=== PATIENT | female | born 1955 | race Caucasian/White ===

== ENCOUNTER 2019-10-30 12:09 | Inpatient (IN) | payer BC ==
[2019-10-25 13:16] LABS: BASOPHILS # (AUTO) 0.1 X10'3 (0-0.2); BASOPHILS % (AUTO) 0.9 % (0-1); EOSINOPHILS # (AUTO) 0.1 X10'3 (0-0.9); LYMPHOCYTES # (AUTO) 1.1 X10'3 (1.1-4.8); LYMPHOCYTES % (AUTO) 18.7 % (21-51); MEAN CORPUSCULAR HEMOGLOBIN 31.4 PG (27.0-31.0); MEAN CORPUSCULAR HGB CONC 33.3 g/dL (33.0-36.5); MEAN CORPUSCULAR VOLUME 94.4 FL (78-98); MEAN PLATELET VOLUME 9.4 FL (7.4-10.4); MONOCYTES # (AUTO) 0.5 X10'3 (0-0.9); MONOCYTES % (AUTO) 8.4 % (2-12); PRE OP HEMATOCRIT 41.7 % (35.0-45.0); PRE OP HEMOGLOBIN 13.9 g/dL (12.0-16.0); PRE OP PLATELET COUNT 250 X10'3 (140-440); RED BLOOD COUNT 4.42 X10'6 (4.20-5.60); RED CELL DISTRIBUTION WIDTH 12.6 % (11.5-14.5)
[2019-10-25 13:31] LABS: PRE OP INR < 0.9 INR; PRE OP PARTIAL THROMB. TIME 25 SECONDS (22-32); PRE OP PROTIME 9.6 SECONDS (9.0-12.0)
[2019-10-25 13:33] LABS: ALBUMIN 4.2 G/DL (3.4-5.0); ALBUMIN/GLOBULIN RATIO 1.3 (1.1-1.5); ALKALINE PHOSPHATASE 99 IU/L (46-116); BLOOD UREA NITROGEN 12 MG/DL (7-18); BUN/CREATININE RATIO 14.6 (6.6-38.0); CHLORIDE 103 MMOL/L (99-107); CREATININE 0.82 MG/DL (0.40-0.90); PRE OP ALT 37 U/L (30-65); PRE OP ANION GAP 7 (8-16); PRE OP AST 30 U/L (10-37); PRE OP BILIRUB, TOTAL 0.5 MG/DL (0.0-1.0); PRE OP GLUCOSE 100 MG/DL (70-104); PRE OP POTASSIUM 4.5 MMOL/L (3.4-5.1); PRE OP SODIUM 138 MMOL/L (135-145); TOTAL CARBON DIOXIDE 28.2 MMOL/L (24-32); TOTAL PROTEIN 7.5 G/DL (6.4-8.2); eGFR 70 ML/MIN
[~2019-10-30] VITALS: Ht 167.6 cm; Wt 69.4 kg
[2019-10-30] VITALS (14 sets, daily range): BP systolic 103–167; BP diastolic 61–119
[~2019-10-30 12:09] MED LIST: ATOR20TA66 PO; MELA3TAB39 PO; NAPR250T4 PO; TRANEXAMIC ACID 1 GM IN NACL,ISO-OS 100 ML IV ONE; ceFAZolin 2gm in dextrose, iso 50 ML IV ONE; famotidine 20mg tablet PO ONE; ringers solution, lacted 1,000 ML IV SCH; vancomycin 1,500 MG in NS 500ml IV soln IV ONE
[2019-10-30] MEDS ORDERED: ACET-1025 PO (12:56)
[2019-10-30] MEDS ORDERED: ceFAZolin 1000mg inj ONE (14:42)
[2019-10-30] MEDS ORDERED: tetracaine 1% (10mg/ml) pres. free inj. ONE (14:55)
[2019-10-30] MEDS ORDERED: midazolam 2 mg/2 ml injection ONE (15:00)
[2019-10-30] MEDS ORDERED: morphine /PF 1mg/ml 10ml inj. ONE (15:02)
[2019-10-30] MEDS ORDERED: propofol inj 20 ML IV ONE ×4 (15:23→17:23)
[2019-10-30] MEDS ORDERED: MIDAZolam 5mg/5ml vial ONE (15:37)
[2019-10-30] MEDS ORDERED: ringers solution, lacted 1,000 ML IV ONE (15:50)
[2019-10-30] MEDS ORDERED: proCHLORperazine 10 MG/2 ml inj IV PRN (15:50)
[2019-10-30] MEDS ORDERED: morphine 2 MG/ML inj. syringe IV PRN (15:50)
[2019-10-30] MEDS ORDERED: hydrALAZINE 20mg/ml inj. IV PRN (15:50)
[2019-10-30] MEDS ORDERED: meperidine/PF 25mg/ml syringe IV PRN ×3 (15:50)
[2019-10-30] MEDS ORDERED: ondansetron/PF 4mg/2ml inj IV PRN ×3 (15:50→18:15)
[2019-10-30] MEDS ORDERED: labetalol 20mg/4ml (5mg/ml) syringe IV PRN (15:50)
[2019-10-30] MEDS ORDERED: morphine 4 MG/ML inj SYRINge IV PRN (15:50)
[2019-10-30] MEDS ORDERED: naloxone 2mg/2ml inj 2 MG in normal saline 500ml IV soln 500 ML IV PRN (15:52)
[2019-10-30] MEDS ORDERED: ROPIVAcaine 0.2%/PF PUMP/bolus 550 ML ADDCANAL SCH (15:52)
[2019-10-30] MEDS ORDERED: diphenhydrAMINE 50 mg/ml inj IV PRN (15:55)
[2019-10-30] MEDS ORDERED: ROPIVAcaine 0.2% (10 MG/5 ML) BOLUS INJECTION ADDCANAL PRN (15:55)
[2019-10-30] MEDS ORDERED: ROPIVAcaine 0.5% (5mg/ml) 30ml vial ONE (17:23)
[2019-10-30] MEDS ORDERED: HYDROmorphone 1 mg/ml syringe IV PRN (18:15)
[2019-10-30] MEDS ORDERED: acetaminophen 325mg tablet PO PRN (18:15)
[2019-10-30] MEDS ORDERED: diphenhydrAMINE 25mg capsule PO PRN (18:15)
[2019-10-30] MEDS ORDERED: magnesium hydroxide 30ml (MOM) UD suspension PO PRN (18:15)
[2019-10-30] MEDS ORDERED: bisacodyl 10mg suppository rectal RC PRN (18:15)
[2019-10-30] MEDS ORDERED: HYDROcodone/acetaminophen 10/325mg tab PO PRN (18:15)
--- NOTE | 2019-10-30 18:25 | NUR ---
Received from OR via BED , accompanied by Anesthesiologist DR ARORA and report given by Anesthesiolgist. PATIENT WAKING UP, DENIES PAIN, V/S WNL, NEUROVASCULAR CHECKS INTACT, 18G PIV RUE , KAEL DRESSING TO RIGHT KNEE CDI W/ COLD POWDER PACK AND ON QUE PUMP AT 4ML/HR , SENSATION T-10.
--- NOTE | 2019-10-30 19:00 | NUR ---
PATIENT A&OX4, DENIES PAIN, V/S WNL, NEUROVASCULAR CHECKS INTACT, 18G PIV RUE , KAEL DRESSING TO RIGHT KNEE CDI W/ COLD POWDER PACK AND ON QUE PUMP AT 4ML/HR , SENSATION T12. . PATIENT TAKEN TO WITH ALL BELONGINGS AND HOOKED UP TO MONITORS IN ROOM AND REPORT GIVEN TO WELL DRILL OPERATOR ROTARY DRILL WHO HAS TAKEN OVER PATIENT CARE.
--- NOTE | 2019-10-30 19:11 | NUR ---
pt back from sx. vss. no pain.
[2019-10-30] MEDS ORDERED: vancomycin/NS 1 GM ADD-VANTAGE 250 ML IV SCH (20:00)
[2019-10-30] MEDS: diphenhydrAMINE 25mg capsule PO PRN (20:17)
[2019-10-30] MEDS ORDERED: temazepam 15mg capsule PO PRN (22:15)
[2019-10-30] MEDS: potassium Cl 20mEq in NS 1,000 ML IV SCH (22:18)
[2019-10-30] MEDS: sennosides 8.6mg tablet PO SCH (22:52)
[2019-10-30] MEDS: hydrOXYzine 25 MG tablet PO PRN (22:52)
[2019-10-31] MEDS: ceFAZolin 1GM/D5W- ADD-VANTAGE 50 ML IV SCH ×2 (00:20→07:53)
[2019-10-31 02:00] VITALS: BP 154/78
[2019-10-31] MEDS: diphenhydrAMINE 25mg capsule PO PRN ×2 (03:28→11:28)
[2019-10-31] MEDS: HYDROcodone/acetaminophen 10/325mg tab PO PRN ×3 (05:32→19:51)
[2019-10-31 06:00] VITALS: BP 146/77
--- NOTE | 2019-10-31 06:30 | NUR ---
Problems reprioritized. Patient report given, questions answered & plan of care reviewed with DORA MAHAJAN.
--- NOTE | 2019-10-31 06:43 | NUR ---
Patient in room ORTHO 4013A. I have received report from DORA FIGUEROA and had the opportunity to ask questions and assume patient care.
[2019-10-31 07:43] LABS: BASOPHILS % (AUTO) 0.5 % (0-1); EOSINOPHILS % (AUTO) 0.3 % (0-6); HEMATOCRIT 31.1 % (35.0-45.0); HEMOGLOBIN 10.4 g/dl (12.0-16.0); LYMPHOCYTES # (AUTO) 0.8 X10'3 (1.1-4.8); LYMPHOCYTES % (AUTO) 8.9 % (21-51); MEAN CORPUSCULAR HEMOGLOBIN 32.1 PG (27.0-31.0); MEAN CORPUSCULAR HGB CONC 33.5 g/dL (33.0-36.5); MEAN CORPUSCULAR VOLUME 95.6 FL (78-98); MEAN PLATELET VOLUME 9.5 FL (7.4-10.4); MONOCYTES # (AUTO) 0.6 X10'3 (0-0.9); MONOCYTES % (AUTO) 7.6 % (2-12); NEUTROPHILS # (AUTO) 6.9 X10'3 (1.8-7.7); NEUTROPHILS % (AUTO) 82.7 % (42-75); PLATELET COUNT 169 X10'3 (140-440); RED BLOOD COUNT 3.25 X10'6 (4.20-5.60); RED CELL DISTRIBUTION WIDTH 13.1 % (11.5-14.5); WHITE BLOOD COUNT 8.4 X10'3 (4.5-11.0)
[2019-10-31 07:53] LABS: ALANINE AMINOTRANSFERASE 24 U/L (12-78); ALBUMIN 3.1 G/DL (3.4-5.0); ALBUMIN/GLOBULIN RATIO 1.2 (1.1-1.5); ALKALINE PHOSPHATASE 74 IU/L (46-116); ANION GAP 7 (8-16); ASPARTATE AMINO TRANSFERASE 19 U/L (10-37); BILIRUBIN,TOTAL 0.7 MG/DL (0.1-1.0); BLOOD UREA NITROGEN 5 MG/DL (7-18); BUN/CREATININE RATIO 5.1 (6.6-38.0); CALCIUM 7.9 MG/DL (8.5-10.1); CHLORIDE 106 MMOL/L (99-107); CREATININE 0.98 MG/DL (0.40-0.90); GLUCOSE 111 MG/DL (70-104); POTASSIUM 4.1 MMOL/L (3.5-5.1); SODIUM 138 MMOL/L (135-145); TOTAL CARBON DIOXIDE 24.8 MMOL/L (24-32); TOTAL PROTEIN 5.7 G/DL (6.4-8.2); eGFR 57 ML/MIN
[2019-10-31] MEDS: aspirin 81mg tablet.DR PO SCH ×2 (07:53→17:41)
[2019-10-31] MEDS: hydrOXYzine 25 MG tablet PO PRN ×3 (08:05→22:10)
[2019-10-31 10:00] VITALS: BP 115/62
[2019-10-31] MEDS: potassium Cl 20mEq in NS 1,000 ML IV SCH ×2 (11:23→19:50)
--- NOTE | 2019-10-31 12:53 | NUR ---
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 Pt currently on a regular diet documented with 50% PO intake first meal. Will continue to follow and monitor need for nutrition intervention. Addendum: 10/31/19 at [address] Amended: Links added.
[2019-10-31 14:00] VITALS: BP 161/81
--- NOTE | 2019-10-31 18:29 | NUR ---
Problems reprioritized. Patient report given, questions answered & plan of care reviewed with rabia smyth.
[2019-10-31] MEDS: sennosides 8.6mg tablet PO SCH (21:00)
[2019-10-31 22:00] VITALS: BP 127/67
[2019-11-01] MEDS: diphenhydrAMINE 25mg capsule PO PRN (00:19)
[2019-11-01] MEDS: HYDROcodone/acetaminophen 10/325mg tab PO PRN (00:21)
[2019-11-01 06:00] VITALS: BP 148/68
--- NOTE | 2019-11-01 07:08 | NUR ---
Patient in room ORTHO 4013A. I have received report from DORA JAVIER and had the opportunity to ask questions and assume patient care.
[2019-11-01 07:21] LABS: ALANINE AMINOTRANSFERASE 17 U/L (12-78); ALBUMIN 2.7 G/DL (3.4-5.0); ALBUMIN/GLOBULIN RATIO 0.9 (1.1-1.5); ALKALINE PHOSPHATASE 67 IU/L (46-116); ANION GAP 8 (8-16); ASPARTATE AMINO TRANSFERASE 19 U/L (10-37); BILIRUBIN,TOTAL 0.6 MG/DL (0.1-1.0); BLOOD UREA NITROGEN 4 MG/DL (7-18); BUN/CREATININE RATIO 4.9 (6.6-38.0); CALCIUM 8.2 MG/DL (8.5-10.1); CHLORIDE 107 MMOL/L (99-107); CREATININE 0.81 MG/DL (0.40-0.90); GLUCOSE 99 MG/DL (70-104); SODIUM 139 MMOL/L (135-145); TOTAL CARBON DIOXIDE 24.5 MMOL/L (24-32); TOTAL PROTEIN 5.7 G/DL (6.4-8.2); eGFR 71 ML/MIN
[2019-11-01 07:25] LABS: BASOPHILS % (AUTO) 0.4 % (0-1); EOSINOPHILS % (AUTO) 0.3 % (0-6); HEMATOCRIT 28.8 % (35.0-45.0); HEMOGLOBIN 9.6 g/dl (12.0-16.0); LYMPHOCYTES # (AUTO) 0.8 X10'3 (1.1-4.8); LYMPHOCYTES % (AUTO) 9.8 % (21-51); MEAN CORPUSCULAR HEMOGLOBIN 31.6 PG (27.0-31.0); MEAN CORPUSCULAR HGB CONC 33.2 g/dL (33.0-36.5); MEAN CORPUSCULAR VOLUME 95.2 FL (78-98); MEAN PLATELET VOLUME 9.7 FL (7.4-10.4); MONOCYTES # (AUTO) 0.8 X10'3 (0-0.9); MONOCYTES % (AUTO) 10.4 % (2-12); NEUTROPHILS # (AUTO) 6.1 X10'3 (1.8-7.7); NEUTROPHILS % (AUTO) 79.1 % (42-75); PLATELET COUNT 158 X10'3 (140-440); RED BLOOD COUNT 3.03 X10'6 (4.20-5.60); RED CELL DISTRIBUTION WIDTH 13.2 % (11.5-14.5); WHITE BLOOD COUNT 7.7 X10'3 (4.5-11.0)
[2019-11-01] MEDS: aspirin 81mg tablet.DR PO SCH (08:01)
[2019-11-01] MEDS ORDERED: ONQPUMP ADDCANAL (08:10)
[2019-11-01] MEDS ORDERED: HYDR-4353 PO (08:10)
[2019-11-01] MEDS ORDERED: ASPI-1071 PO (08:10)
--- NOTE | 2019-11-01 08:10 | NUR ---
Patient in room ORTHO 4013. I have received report from Jo Ann JOHN and had the opportunity to ask questions and assume patient care.
[2019-11-01 10:00] VITALS: BP 122/68
[2019-11-01] MEDS: potassium Cl 20mEq in NS 1,000 ML IV SCH (10:13)
--- NOTE | 2019-11-01 13:45 | NUR ---
DC instructions given to pt, pt had opportunity to ask questions. IV was removed canula intact no complications. Pt was assisted with dressing, belongings were packed up. [facility] picked pt up in stable condition.
== END 2019-11-01 14:05 | disposition home or self-care (01) | DRG 470 ==
LOC: PAS 12:09 → ORTHO 4S 18:13
PROVIDERS: ADMIT Orthopaedic Surgery; ATTEND Orthopaedic Surgery
PROC: 0SRC0J9 Replacement of Right Knee Joint with Synthetic Substitute, Cemented, Open Approach (ICD-10-PCS; principal; 2019-10-30 14:54)
DX: M17.11 Unilateral primary osteoarthritis, right knee (principal); Z79.899 Other long term (current) drug therapy
CPT/HCPCS: Z7506; Z7508; 36415; 80053; 82948; 85025; 85610; 85730; 86885; 86900; 86901; 86920; 87081; 97116; 97161; 97530; A6455; A7000; C1713; C1758; C1776; G0378; J0690; J1200; J2250; J2270; J2704; J2795; J3370; J3480; J7040; J7120; Q0163; Q0177

== ENCOUNTER 2020-05-06 05:29 | Day surgery (SDC) | payer BC ==
[2020-05-01 12:38] LABS: BASOPHILS # (AUTO) 0.1 X10'3 (0-0.2); EOSINOPHILS # (AUTO) 0.1 X10'3 (0-0.9); EOSINOPHILS % (AUTO) 1.9 % (0-6); LYMPHOCYTES # (AUTO) 1.2 X10'3 (1.1-4.8); MEAN CORPUSCULAR HEMOGLOBIN 32.1 PG (27.0-31.0); MEAN CORPUSCULAR HGB CONC 33.6 g/dL (33.0-36.5); MEAN CORPUSCULAR VOLUME 95.7 FL (78-98); MONOCYTES # (AUTO) 0.5 X10'3 (0-0.9); MONOCYTES % (AUTO) 8.3 % (2-12); NEUTROPHILS % (AUTO) 68.8 % (42-75); PRE OP HEMATOCRIT 41.2 % (35.0-45.0); PRE OP HEMOGLOBIN 13.8 g/dL (12.0-16.0); PRE OP PLATELET COUNT 234 X10'3 (140-440); RED BLOOD COUNT 4.31 X10'6 (4.20-5.60); RED CELL DISTRIBUTION WIDTH 14.1 % (11.5-14.5)
[2020-05-01 12:52] LABS: PRE OP INR 0.9 INR; PRE OP PROTIME 9.8 SECONDS (9.0-12.0)
[2020-05-01 12:56] LABS: ALBUMIN 4.2 G/DL (3.4-5.0); ALBUMIN/GLOBULIN RATIO 1.1 (1.1-1.5); ALKALINE PHOSPHATASE 118 IU/L (46-116); BLOOD UREA NITROGEN 13 MG/DL (7-18); BUN/CREATININE RATIO 16.5 (6.6-38.0); CALCIUM 9.2 MG/DL (8.5-10.1); CHLORIDE 105 MMOL/L (99-107); CREATININE 0.79 MG/DL (0.40-0.90); PRE OP ALT 38 U/L (30-65); PRE OP ANION GAP 8 (8-16); PRE OP AST 25 U/L (10-37); PRE OP BILIRUB, TOTAL 0.4 MG/DL (0.0-1.0); PRE OP GLUCOSE 96 MG/DL (70-104); PRE OP POTASSIUM 4.6 MMOL/L (3.4-5.1); PRE OP SODIUM 140 MMOL/L (135-145); TOTAL CARBON DIOXIDE 26.7 MMOL/L (24-32); TOTAL PROTEIN 7.9 G/DL (6.4-8.2); eGFR 73 ML/MIN
[2020-05-06] VITALS (17 sets, daily range): BP systolic 102–166; BP diastolic 62–124
[~2020-05-06] VITALS: Ht 167.6 cm; Wt 68.0 kg
[~2020-05-06 05:29] MED LIST changes: +ACET-2319 PO; -ATOR20TA66 PO; -MELA3TAB39 PO; +NAPR220C15 PO; -NAPR250T4 PO; -TRANEXAMIC ACID 1 GM IN NACL,ISO-OS 100 ML IV ONE; -ceFAZolin 2gm in dextrose, iso 50 ML IV ONE; -famotidine 20mg tablet PO ONE; -ringers solution, lacted 1,000 ML IV SCH; -vancomycin 1,500 MG in NS 500ml IV soln IV ONE
[2020-05-06] MEDS ORDERED: famotidine 20mg tablet PO ONE (05:30)
[2020-05-06] MEDS ORDERED: VANCOMYCIN INJ 1000 MG in NORMAL SALINE 250ml IV.SOLN IV ONE (05:30)
[2020-05-06] MEDS ORDERED: TRANEXAMIC ACID 1 GM IN NACL,ISO-OS 100 ML IV ONE (05:30)
[2020-05-06] MEDS ORDERED: ceFAZolin 2gm in dextrose, iso 50 ML IV ONE (05:30)
[2020-05-06] MEDS ORDERED: LIDOcaine 1% (10mg/ml) 2ml vial ONE (05:44)
[2020-05-06] MEDS: ringers solution, lacted 1,000 ML IV SCH ×2 (06:29→12:40)
[2020-05-06] MEDS ORDERED: cloNIDine hcl/PF 100mcg/ml inj ONE (06:54)
[2020-05-06] MEDS ORDERED: ceFAZolin 1000mg inj ONE (06:55)
[2020-05-06] MEDS ORDERED: ROPIVAcaine 0.5% (5mg/ml) 30ml vial ONE ×2 (06:55→09:05)
[2020-05-06] MEDS ORDERED: ketorolac trometh. 30mg/ml inj. ONE (07:07)
[2020-05-06] MEDS ORDERED: scopolamine 1.5mg patch.TD72 TD ONE (07:13)
[2020-05-06] MEDS ORDERED: fentaNYL/PF 50MCG/1 ML 2ML syringe ONE (07:18)
[2020-05-06] MEDS ORDERED: MIDAZolam 5mg/5ml vial ONE (07:18)
[2020-05-06] MEDS ORDERED: ROPIVAcaine 0.5% (5mg/ml) 30ml vial IJ ONE (08:39)
[2020-05-06] MEDS ORDERED: cloNIDine hcl/PF 100mcg/ml inj IJ ONE (08:41)
[2020-05-06] MEDS ORDERED: ceFAZolin 1000mg inj IR ONE (08:42)
[2020-05-06] MEDS ORDERED: LIDOcaine 1%/PF 5ML 10 MG/ML VIAL ONE (09:05)
[2020-05-06] MEDS ORDERED: propofol inj 20 ML IV ONE (09:05)
[2020-05-06] MEDS ORDERED: morphine 4 MG/ML inj SYRINge IV PRN (09:10)
[2020-05-06] MEDS ORDERED: proCHLORperazine 10 MG/2 ml inj IV PRN (09:10)
[2020-05-06] MEDS ORDERED: ringers solution, lacted 1,000 ML IV SCH (09:10)
[2020-05-06] MEDS ORDERED: ROPIVAcaine 0.2% (10 MG/5 ML) BOLUS INJECTION ADDCANAL PRN (09:10)
[2020-05-06] MEDS ORDERED: meperidine/PF 25mg/ml syringe IV PRN ×3 (09:10)
[2020-05-06] MEDS ORDERED: ROPIVAcaine 0.2%/PF PUMP/bolus 550 ML ADDCANAL SCH (09:10)
[2020-05-06] MEDS ORDERED: ketorolac trometh. 30mg/ml inj. IM ONE (09:10)
[2020-05-06] MEDS ORDERED: ondansetron/PF 4mg/2ml inj IV PRN ×2 (09:10→10:35)
[2020-05-06] MEDS ORDERED: morphine 2 MG/ML inj. syringe IV PRN (09:10)
[2020-05-06] MEDS ORDERED: midazolam 2 mg/2 ml injection ONE (09:56)
[2020-05-06] MEDS ORDERED: diphenhydrAMINE 25mg capsule PO PRN ×2 (10:35)
[2020-05-06] MEDS ORDERED: acetaminophen 325mg tablet PO PRN (10:35)
[2020-05-06] MEDS ORDERED: magnesium hydroxide 30ml (MOM) UD suspension PO PRN (10:35)
[2020-05-06] MEDS ORDERED: bisacodyl 10mg suppository rectal RC PRN (10:35)
--- NOTE | 2020-05-06 10:37 | NUR ---
Received from OR via ortho bed, accompanied by Anesthesiologist Trip and report given by Anesthesiolgist. Left knee robert dressing leg wrap and cold pack in place with on-q exposed. Distal pulses palpable. VS stable. No pain, no sensation below hips. 20G right hand with IVF LR at 100cc/hr.
--- NOTE | 2020-05-06 11:27 | NUR ---
Report called to receiving nurse. Transferred via ortho bed to room 347AMiladis RN at bedside to receive after called report. Belongings sent with patient, one bag. Special Issues communicated to receiving nurse. BLL call light within reach, comfortable, extras blankets given, chart at desk.
--- NOTE | 2020-05-06 11:30 | NUR ---
Patient in room [facility] 347. I have received report from Manasa JOHN and had the opportunity to ask questions and assume patient care.
[2020-05-06] MEDS: potassium Cl 20mEq in NS 1,000 ML IV SCH ×2 (12:39→23:55)
[2020-05-06] MEDS: oxyCODONE/APAP 5-325mg tablet PO PRN ×2 (12:43→18:07)
[2020-05-06] MEDS: ketorolac trometh. 30mg/ml inj. IV SCH ×2 (14:51→20:29)
[2020-05-06] MEDS: ceFAZolin/D5W- 1GM premix 50 ML IV SCH (15:20)
[2020-05-06] MEDS: aspirin 81mg tablet.DR PO SCH (16:48)
--- NOTE | 2020-05-06 18:52 | NUR ---
patient orientated to room, VSS, piko dressing in place ice packs applied. patient worked with PT . On que pain pump in place. at level 2 when came in and increased to level 6, moderatly effective with pain relief. patient also medicated with percocet see EMAR for pain relief with effect. IDC in place adequate output. Report given to Jessica JOHN
[2020-05-06] MEDS ORDERED: vancomycin/NS 1 GM ADD-VANTAGE 250 ML IV SCH (20:00)
[2020-05-06] MEDS ORDERED: sennosides 8.6mg tablet PO SCH (21:00)
[2020-05-07] VITALS: BP 133/70
[2020-05-07] MEDS: ceFAZolin/D5W- 1GM premix 50 ML IV SCH (00:11)
[2020-05-07] MEDS: ketorolac trometh. 30mg/ml inj. IV SCH ×2 (01:45→07:53)
[2020-05-07] MEDS: potassium Cl 20mEq in NS 1,000 ML IV SCH (04:22)
[2020-05-07 05:15] LABS: BASOPHILS % (AUTO) 0.2 % (0-1); EOSINOPHILS % (AUTO) 0 % (0-6); HEMATOCRIT 31.7 % (35.0-45.0); HEMOGLOBIN 10.7 g/dl (12.0-16.0); LYMPHOCYTES # (AUTO) 0.6 X10'3 (1.1-4.8); LYMPHOCYTES % (AUTO) 6.3 % (21-51); MEAN CORPUSCULAR HEMOGLOBIN 32.7 PG (27.0-31.0); MEAN CORPUSCULAR HGB CONC 33.9 g/dL (33.0-36.5); MEAN CORPUSCULAR VOLUME 96.5 FL (78-98); MEAN PLATELET VOLUME 9.6 FL (7.4-10.4); MONOCYTES # (AUTO) 0.7 X10'3 (0-0.9); MONOCYTES % (AUTO) 7.8 % (2-12); NEUTROPHILS # (AUTO) 7.8 X10'3 (1.8-7.7); NEUTROPHILS % (AUTO) 85.7 % (42-75); PLATELET COUNT 168 X10'3 (140-440); RED BLOOD COUNT 3.28 X10'6 (4.20-5.60); WHITE BLOOD COUNT 9.1 X10'3 (4.5-11.0)
[2020-05-07 05:45] LABS: ALANINE AMINOTRANSFERASE 22 U/L (12-78); ALBUMIN/GLOBULIN RATIO 1.1 (1.1-1.5); ALKALINE PHOSPHATASE 87 IU/L (46-116); ANION GAP 8 (8-16); ASPARTATE AMINO TRANSFERASE 17 U/L (10-37); BILIRUBIN,TOTAL 0.5 MG/DL (0.1-1.0); BLOOD UREA NITROGEN 13 MG/DL (7-18); CALCIUM 8.1 MG/DL (8.5-10.1); CHLORIDE 108 MMOL/L (99-107); CREATININE 1.08 MG/DL (0.40-0.90); GLUCOSE 101 MG/DL (70-104); SODIUM 140 MMOL/L (135-145); TOTAL PROTEIN 5.8 G/DL (6.4-8.2); eGFR 51 ML/MIN
--- NOTE | 2020-05-07 06:09 | NUR ---
REPORT GIVEN TO ODRA SHEPHERD.
[2020-05-07] MEDS ORDERED: ASPI-1071 PO (06:11)
[2020-05-07 07:39] VITALS: BP 135/77
[2020-05-07] MEDS: aspirin 81mg tablet.DR PO SCH (07:53)
--- NOTE | 2020-05-07 08:01 | NUR ---
Per [facility] PT, patient did good walking with PT 350 feet and that patient should be fine going home today.
[2020-05-07] MEDS: oxyCODONE/APAP 5-325mg tablet PO PRN ×2 (08:02→11:04)
[2020-05-07] MEDS ORDERED: OXYC-145 PO (09:12)
--- NOTE | 2020-05-07 09:30 | NUR ---
Patient requesting transportation service from [facility] as her will need help with transporting her and getting around from vehicle to the house. [employer] Sonam notified about the request. Patient stated she just received text message from Jm Lal at [facility].
--- NOTE | 2020-05-07 10:33 | NUR ---
Discharge instructions given to patient, patient verbalized understanding of all instructions given to her. Ortho/neuro nurse Olga also gave this patient instructions specifically for On-Q pain pump. Patient new rx for narcotic has bee e-sent by Maggie Gaxiola NP.
--- NOTE | 2020-05-07 10:47 | NUR ---
OnQ pain pump delivered by pharmacy given to patient at bedside. Olga JOHN, ortho/neuro nurse said she will talk to patient and replace the onQ pump with a new one before leaving. Patient said she called [facility] to pick her up today and that she is anticipating it at 11:30am today
--- NOTE | 2020-05-07 10:47 | NUR ---
Peripheral IV catheter removed, tip intact.
== END 2020-05-07 11:32 | disposition home or self-care (01) ==
LOC: PAS 05:29 → SUR 3N 10:32 → PAS 05-07 11:32
PROVIDERS: ATTEND Orthopaedic Surgery
DX: M17.12 Unilateral primary osteoarthritis, left knee (principal); E78.5 Hyperlipidemia, unspecified; G89.18 Other acute postprocedural pain; Z20.828 Contact with and (suspected) exposure to other viral communicable diseases; Z96.651 Presence of right artificial knee joint; Z86.14 Personal history of Methicillin resistant Staphylococcus aureus infection; Z98.890 Other specified postprocedural states; Z88.2 Allergy status to sulfonamides; Z88.5 Allergy status to narcotic agent; Z79.899 Other long term (current) drug therapy; Z79.01 Long term (current) use of anticoagulants
CPT/HCPCS: 27447; 36415; 64448; 76937; 80053; 82948; 85025; 85610; 85730; 86885; 86900; 86901; 86920; 87081; 87635; 93005; 97110; 97116; 97161; 97530; C1713; C1758; C1776; J0690; J0735; J1885; J2001; J2250; J2704; J2795; J3010; J3370; J3480; Q0163; A6455; A7000; G0378; J7120